=== PATIENT | male | born 1960 | race Two or more races ===

== ENCOUNTER 2021-01-02 12:52 | Outpatient (RCR) | payer BC, SELFPAY ==
[2021-01-23] MEDS: COVID-19 VACC, MRNA(PFIZER)/PF 30 MCG/0.3 ML SYRINGE IM (07:42)
== END 2021-03-27 23:59 ==
LOC: IMMUN 12:52
PROVIDERS: Referring Provider Family Medicine; Visit Provider Family Medicine
DX: Z23 Encounter for immunization (principal)
CPT/HCPCS: 0001A; 0002A; 91300